=== PATIENT | female | born 1990 | race Caucasian/White ===

== ENCOUNTER 2020-05-16 15:23 | Outpatient (CLI) | payer OTHER ==
[~2020-05-16 15:23] MED LIST: ACET325T14 PO; FERR325T18 PO; IBUP-1222 PO; OXYC-302 PO; PREN1TAB56 PO
[2020-05-16] MEDS ORDERED: LEVO112T2 PO (15:41)
== END 2020-05-16 23:59 | disposition home or self-care (01) ==
LOC: STAR 15:23
PROVIDERS: ATTEND Obstetrics & Gynecology Female Pelvic Medicine and Reconstructive Surgery
DX: Z02.9 Encounter for administrative examinations, unspecified (principal)

== ENCOUNTER 2020-05-21 05:35 | Day surgery (SDC) | payer OTHER ==
[~2020-05-21] VITALS: Ht 157.5 cm; Wt 76.0 kg
[~2020-05-21 05:35] MED LIST changes: +LEVO112T2 PO
[2020-05-21] MEDS ORDERED: LACTATED RINGERS 1,000 ML IV SCH ×2 (06:05→08:53)
[2020-05-21] MEDS ORDERED: CHLORHEXIDINE 15 ML UDC MM STA (06:06)
[2020-05-21] MEDS ORDERED: CHLORHEXIDINE 15 ML UDC ONE (06:11)
[2020-05-21 06:20] VITALS: BP 128/88
[2020-05-21] MEDS ORDERED: MIDAZOLAM 1 MG/ML, 2ML ONE (06:35)
[2020-05-21] MEDS ORDERED: FENTANYL PF 250 MCG/5ML ONE ×2 (06:35→08:07)
[2020-05-21] MEDS ORDERED: GABAPENTIN 300 MG CAPSULE PO STA (06:37)
[2020-05-21] MEDS ORDERED: KETOROLAC 30 MG/1 ML ONE (06:37)
[2020-05-21] MEDS ORDERED: ACETAMINOPHEN 500 MG TABLET PO STA (06:37)
[2020-05-21] MEDS ORDERED: SCOPOLAMINE 1MG PATCH TD ONE ×2 (06:37→06:38)
[2020-05-21] MEDS ORDERED: ACETAMINOPHEN 500 MG TABLET ONE (06:38)
[2020-05-21] MEDS ORDERED: GABAPENTIN 300 MG CAPSULE ONE (06:39)
[2020-05-21] MEDS ORDERED: PHENYLEPHRINE 10 MG/ML ONE (06:40)
[2020-05-21] MEDS ORDERED: NEOSTIGMINE 1 MG/ML, 10ML ONE (06:41)
[2020-05-21] MEDS ORDERED: PROPOFOL 10 MG/ML, 20ML ONE (06:41)
[2020-05-21] MEDS ORDERED: ROCURONIUM 10MG/ML,5ML ONE (06:41)
[2020-05-21] MEDS ORDERED: ONDANSETRON 2MG/ML, 2ML ONE (06:41)
[2020-05-21] MEDS ORDERED: CEFAZOLIN 1,000 MG ONE (06:41)
[2020-05-21] MEDS ORDERED: GLYCOPYRROLATE 0.2MG/1ML, 5ML ONE (06:41)
[2020-05-21] MEDS ORDERED: DEXAMETHASONE 4 MG/ML, 1ML ONE (06:41)
[2020-05-21 06:55] LABS: HCG UR SG 1.016 (1.003-1.030)
[2020-05-21] MEDS ORDERED: INDIGO CARMINE 0.8%, 5ML ONE (06:56)
[2020-05-21] MEDS ORDERED: BUPIVACAINE/PF-EPI 0.25% 1:200K ONE (06:56)
[2020-05-21] MEDS ORDERED: PROPOFOL 50 ML ONE (06:57)
[2020-05-21] MEDS ORDERED: HYDROmorphone 1 MG/ML, 1ML INJ IVPush PRN (07:00)
[2020-05-21] MEDS ORDERED: MEPERIDINE/PF 25MG/0.5ML IVPush PRN (07:00)
[2020-05-21] MEDS ORDERED: morphine SULFATE 10 MG/ML, 1ML IVPush PRN (07:00)
[2020-05-21] MEDS ORDERED: LABETALOL 5MG/ML, 20ML IV PRN (07:00)
[2020-05-21] MEDS ORDERED: PROMETHAZINE 25 MG/ML, 1ML IVPush PRN (07:00)
[2020-05-21] MEDS ORDERED: HALOPERIDOL 5 MG/ML IV PRN (07:00)
[2020-05-21] MEDS ORDERED: FENTANYL PF 100 MCG/2ML IV PRN (07:00)
[2020-05-21] MEDS ORDERED: OXYcodone 5 MG/5 ML ORAL.SOL UDC PO PRN ×2 (07:00→09:00)
[2020-05-21] MEDS ORDERED: hydrALAzine 20 MG/ML, 1ML IV PRN (07:00)
[2020-05-21] MEDS ORDERED: PROMETHAZINE 25 MG SUPP PR ONE (09:00)
[2020-05-21] MEDS ORDERED: OXYcodone/APAP 5/325MG TABLET PO PRN (09:00)
[2020-05-21] MEDS ORDERED: IBUPROFEN 600 MG TABLET PO PRN (09:00)
[2020-05-21] MEDS ORDERED: ONDANSETRON 2MG/ML, 2ML IVPush PRN (09:00)
[2020-05-21] MEDS ORDERED: HALOPERIDOL 5 MG/ML ONE (09:22)
[2020-05-21] MEDS ORDERED: OXYcodone 5 MG/5 ML ORAL.SOL UDC ONE (09:22)
[2020-05-21] MEDS ORDERED: FENTANYL PF 100 MCG/2ML ONE (09:22)
== END 2020-05-21 14:45 | disposition home or self-care (01) ==
LOC: OUT 05:35
PROVIDERS: ATTEND Obstetrics & Gynecology Female Pelvic Medicine and Reconstructive Surgery
DX: N92.6 Irregular menstruation, unspecified (principal); Z11.59 Encounter for screening for other viral diseases; N80.0 Endometriosis of uterus; N73.6 Female pelvic peritoneal adhesions (postinfective); R10.2 Pelvic and perineal pain; E03.9 Hypothyroidism, unspecified; Z79.890 Hormone replacement therapy; Z90.49 Acquired absence of other specified parts of digestive tract; Z98.890 Other specified postprocedural states; Z83.3 Family history of diabetes mellitus; Z82.49 Family history of ischemic heart disease and other diseases of the circulatory system; Z83.42 Family history of familial hypercholesterolemia
CPT/HCPCS: 36415; 58552; 81025; 87635; 88307; J0690; J1100; J1630; J1885; J2250; J2370; J2405; J2704; J2710; J3010; J7120; S2900